=== PATIENT | female | born 1995 | race African-American/Black ===

== ENCOUNTER 2023-05-25 16:51 | Emergency (ER) | payer MEDICAID ==
[~2023-05-25] VITALS: Ht 162.6 cm; Wt 79.0 kg
[2023-05-25 16:53] VITALS: O2SAT 100
[2023-05-25] MEDS ORDERED: TRIMO LEFTEYE (19:07)
[2023-05-25] MEDS ORDERED: IBUPROFEN 800MG TABLET PO ONE (19:30)
[2023-05-25] MEDS: IBUPROFEN 400MG TABLET PO NR (19:30)
[2023-05-25 21:16] VITALS: BP 117/60; PULSE 97; RESP 20; TEMP 98.2
== END 2023-05-25 22:25 | disposition home or self-care (01) ==
LOC: ER 16:51
DX: H00.016 Hordeolum externum left eye, unspecified eyelid (principal)
CPT/HCPCS: 81025; 99283

== ENCOUNTER 2024-12-01 11:52 | Emergency (ER) | payer MEDICAID ==
[~2024-12-01] VITALS: Ht 172.7 cm; Wt 91.0 kg
[~2024-12-01 11:52] MED LIST: TRIMO LEFTEYE
[2024-12-01 11:54] VITALS: O2SAT 99
[2024-12-01] MEDS ORDERED: AMOX1TAB16 MT (12:55)
[2024-12-01] MEDS: KETOROLAC 30MG/ML VIAL IM ONE (13:05)
[2024-12-01] MEDS: LORAZEPAM 1MG TABLET PO ONE (13:06)
[2024-12-01 13:29] VITALS: BP 162/90; PULSE 82; RESP 18; TEMP 36.8; O2SAT 99
[2024-12-02] MEDS ORDERED: IBUP-2030 MT (22:03)
== END 2024-12-01 14:28 | disposition home or self-care (01) ==
LOC: ER 12:06
DX: H92.03 Otalgia, bilateral (principal); K08.89 Other specified disorders of teeth and supporting structures
CPT/HCPCS: 81025; 96372; 99283; J1885; Z7610

== ENCOUNTER 2024-12-02 18:20 | Emergency (ER) | payer MEDICAID ==
[~2024-12-02] VITALS: Ht 172.7 cm; Wt 91.0 kg
[~2024-12-02 18:20] MED LIST changes: +AMOX1TAB16 MT
[2024-12-02 18:26] VITALS: O2SAT 97
[2024-12-02 19:27] LABS: BASOPHILS % 0.2 % (0.0-2.0); EOSINOPHILS % 2.3 % (0.0-5.0); HEMATOCRIT. 30.8 % (36.0-48.0); HEMOGLOBIN. 9.3 g/dL (12.0-16.0); LYMPHOCYTES % 19.3 % (20.0-50.0); MEAN PLATELET VOLUME 8.0 fl (7.4-10.4); MONOCYTES % 6.7 % (2.0-8.0); NEUTROPHILS % 71.5 % (40.0-76.0); PLATELET 441 x1000/uL (130-400); RED BLOOD CELL COUNT 4.50 mill/uL (4.2-5.4); RED CELL DISTRIBUTION WIDTH 18.7 % (11.6-14.6)
[2024-12-02 19:30] LABS: ADD RBC MORPHOLOGY YES
[2024-12-02 19:46] LABS: HCG SCREEN NEGATIVE
[2024-12-02 19:47] LABS: TROPONIN I HIGH SENSITIVITY < 4 ng/L (3.0-34)
[2024-12-02 19:48] LABS: CREATININE 0.8 mg/dL (0.6-1.0); UREA NITROGEN BLOOD 6 mg/dL (9-23)
[2024-12-02 19:49] LABS: ETHANOL BLOOD < 10 mg/dL (<10)
[2024-12-02 19:50] LABS: ASPARTATE AMINOTRANSFERASE 16 IU/L (<34); BILIRUBIN DIRECT < 0.1 mg/dL (<=3.0); BILIRUBIN TOTAL 0.3 mg/dL (0.1-1.0); PROTEIN TOTAL 6.6 g/dL (6.0-8.3)
[2024-12-02] MEDS: SODIUM CHLORIDE 0.9% 1,000 ML IV ONE (19:57)
[2024-12-02 20:07] LABS: PLATELET ESTIMATE INCREASED
[2024-12-02] MEDS: KETOROLAC 30MG/ML VIAL IV NR (20:29)
[2024-12-02] MEDS: INSULIN REGULAR (HUMULIN R) 1000UNITS/10ML VIAL SUBCUT ONE (21:01)
[2024-12-02] MEDS ORDERED: IBUP-2030 MT (22:03)
[2024-12-02 22:17] VITALS: BP 147/94; PULSE 92; RESP 18; TEMP 36.7; O2SAT 100
== END 2024-12-02 22:26 | disposition home or self-care (01) ==
LOC: ER 18:20
DX: H66.93 Otitis media, unspecified, bilateral (principal); E11.65 Type 2 diabetes mellitus with hyperglycemia; Z55.6 Problems related to health literacy; Z91.148 Patient's other noncompliance with medication regimen for other reason; Z79.899 Other long term (current) drug therapy
CPT/HCPCS: 80076; 80048; 82010; 80320; 82962; 84703; 83930; 85025; 84484; 36415; 93005; 96361; 96372; 96374; 99285; J1815; J1885; J7030; G0480